=== PATIENT | female | born 1975 | race Caucasian/White ===

== ENCOUNTER 2016-05-05 09:54 | Emergency (ER) | payer BC ==
[2016-05-05 10:12] VITALS: BP 132/63
--- NOTE | 2016-05-05 10:45 | UC ---
Throat Pain/Nasal Johnny HPI - HPI Summary HPI Summary: Fever, aches, chills, maxillary sinus pressure, and nasal congestion starting 3 days ago. 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 - History of Current Complaint Chief Complaint: UCRespiratory Stated Complaint: FEVER,SINUSES Time Seen by Provider: 05/05/16 10:29 Hx Obtained From: Patient Hx Last Menstrual Period: 04/23/16 ?: No Onset/Duration: Gradual Onset, Lasting Days Cough: Nonproductive - mild Associated Signs & Symptoms: Positive: Sinus Discomfort, Nasal Discharge, Fever - Allergies/Home Medications Allergies/Adverse Reactions: Allergies Allergy/AdvReac Type Severity Reaction Status Date / Time Iodinated Contrast Media Allergy Severe Shortness Verified 05/05/16 10:12 [CONTRAST DYE] of Breath Metformin Allergy Hives Verified 05/05/16 10:12 Penicillin G Allergy Hives Verified 05/05/16 10:12 Venlafaxine [From Effexor] Allergy Hives Verified 05/05/16 10:12 Erythromycin AdvReac Severe severe Verified 05/05/16 10:12 abdominal pain novacaine Allergy Mild Blisters Uncoded 05/05/16 10:12 Home Medications: Home Medications LORazepam TAB(*) [Ativan TAB(*)] 0.5 mg PO QID PRN 05/05/16 [History Confirmed 05/05/16] Minocycline (NF) 100 mg PO DAILY 05/05/16 [History Confirmed 05/05/16] PMH/Surg Hx/FS Hx/Imm Hx Endocrine History Of: Denies: Diabetes, Thyroid Disease, Hyperthyroidism, Hypothyroidism, Dyslipidemia Cardiovascular History Of: Denies: Cardiac Disorders, Hypertension, Pacemaker/ICD, Myocardial Infarction , Congestive Heart Failure, Atrial Fibrillation, Deep Vein Thrombosis, Bleeding Disorders Respiratory History Of: Denies: COPD, Asthma, Bronchitis, Pneumonia, Pulmonary Embolism GI/ History Of: Denies: Gastroesophageal Reflux, Ulcer, Gastrointestinal Bleed, Gall Bladder Disease, Kidney Stones, Diverticulitis, Renal Disease, Urosepsis Neurological History Of: Denies: TIA, CVA, Dementia, Seizures, Migraine Psychological History Of: Reports: Anxiety, Depression Cancer History Of: Denies: Lung Cancer, Colorectal Cancer, Breast Cancer, Prostate Cancer, Cervical Cancer Other History Of: Negative For: HIV, Hepatitis B, Hepatitis C - Surgical History Surgical History: Yes Surgery Procedure, Year, and Place: Tonsillectomy, sinus surgery 04/2015, rt wrist surgery 09/12/05, D&C 01/2013. - Family History Known Family History: Positive: Hypertension - Social History Occupation: Employed Full-time Alcohol Use: Rare Substance Use Type: None Smoking Status (MU): Never Smoked Tobacco Review of Systems Constitutional: Fever, Chills, Fatigue Skin: Negative Eyes: Negative ENT: Nasal Discharge Respiratory: Cough Cardiovascular: Negative Gastrointestinal: Negative Genitourinary: Negative Motor: Negative Neurovascular: Negative Musculoskeletal: Myalgia Neurological: Negative Psychological: Negative All Other Systems Reviewed And Are Negative: Yes Physical Exam Triage Information Reviewed: Yes Appearance: Well-Appearing, No Pain Distress, Obese Vital Signs: Initial Vital Signs Temp 96.5 F 05/05/16 10:09 Pulse 79 05/05/16 10:09 Resp 16 05/05/16 10:09 BP 132/63 05/05/16 10:09 Pulse Ox 97 05/05/16 10:09 Vital Signs Reviewed: Yes Eye Exam: Normal Eyes: Positive: Conjunctiva Clear ENT: Positive: Hearing grossly normal, Pharynx normal, Nasal congestion, TMs normal. Negative: Tonsillar swelling - s/p tonsillectomy Dental Exam: Normal Neck exam: Normal Neck: Positive: Supple, Nontender, No Lymphadenopathy Respiratory Exam: Normal Respiratory: Positive: Chest non-tender, Lungs clear, Normal breath sounds, No respiratory distress, No accessory muscle use Cardiovascular Exam: Normal Cardiovascular: Positive: RRR, No Murmur Musculoskeletal Exam: Normal Neurological Exam: Normal Psychological Exam: Normal Skin Exam: Normal Throat Pain/Nasal Course/Dx - Differential Dx/Diagnosis Provider Diagnoses: sinusitis, likely viral. URI Discharge - Discharge Plan Condition: Stable Disposition: HOME Patient Education Materials: Upper Respiratory Infection (ED), Sinusitis (ED) Referrals: Reji Jorgensen MD [Primary Care Provider] - Additional Instructions: All of your symptoms are viral at this point. Because your flu swab was negative , there is no particular treatment for you. Please call and get me a message if you have focal symptoms or worsening by sunday. I will be at [facility] on Sunday and Sunday.
== END 2016-05-05 11:17 | disposition home or self-care (01) ==
LOC: UCCORT 09:54
DX: J32.9 Chronic sinusitis, unspecified (principal); J06.9 Acute upper respiratory infection, unspecified; F41.9 Anxiety disorder, unspecified; E66.9 Obesity, unspecified; Z88.0 Allergy status to penicillin; Z88.1 Allergy status to other antibiotic agents; Z88.8 Allergy status to other drugs, medicaments and biological substances; Z91.041 Radiographic dye allergy status
CPT/HCPCS: 87502; 99211; G0463

== ENCOUNTER 2016-06-05 18:05 | Emergency (ER) | payer BC ==
[2016-06-05 18:50] VITALS: BP 148/84
--- NOTE | 2016-06-05 20:30 | UC ---
Complaint Female HPI - HPI Summary HPI Summary: 40 y/o female complaining of urinary frequency, burning on urination, hesitancy , and feeling as though she is not fully emptying her bladder x 4 days. Patient states she began taking an ABX facial cream a week ago, and also developed vaginal itchiness, dryness, and increased thick white discharge. Patient denies any new sexual partners or activities. - History Of Current Complaint Chief Complaint: UCGU Stated Complaint: URINARY Time Seen by Provider: 06/05/16 20:17 Hx Obtained From: Patient Hx Last Menstrual Period: 05/13/16 ?: No Onset/Duration: Gradual Onset Aggravating Factor(s): Urination Associated Signs And Symptoms: Positive: Vaginal Discharge. Negative: Back Pain - Risk Factors Ectopic Risk Factor: Negative Ovarian Torsion Risk Factor: Negative - Allergies/Home Medications Allergies/Adverse Reactions: Allergies Allergy/AdvReac Type Severity Reaction Status Date / Time Iodinated Contrast Media Allergy Severe Shortness Verified 05/05/16 10:12 [CONTRAST DYE] of Breath Metformin Allergy Hives Verified 05/05/16 10:12 Penicillin G Allergy Hives Verified 05/05/16 10:12 Venlafaxine [From Effexor] Allergy Hives Verified 05/05/16 10:12 Erythromycin AdvReac Severe severe Verified 05/05/16 10:12 abdominal pain novacaine Allergy Mild Blisters Uncoded 05/05/16 10:12 PMH/Surg Hx/FS Hx/Imm Hx - Additional Past Medical History Additional PMH: basal cell carcinoma Previously Healthy: Yes Endocrine History Of: Denies: Diabetes, Thyroid Disease, Hyperthyroidism, Hypothyroidism, Dyslipidemia Cardiovascular History Of: Denies: Cardiac Disorders, Hypertension, Pacemaker/ICD, Myocardial Infarction , Congestive Heart Failure, Atrial Fibrillation, Deep Vein Thrombosis, Bleeding Disorders Respiratory History Of: Denies: COPD, Asthma, Bronchitis, Pneumonia, Pulmonary Embolism GI/ History Of: Denies: Gastroesophageal Reflux, Ulcer, Gastrointestinal Bleed, Gall Bladder Disease, Kidney Stones, Diverticulitis, Renal Disease, Urosepsis Neurological History Of: Denies: TIA, CVA, Dementia, Seizures, Migraine Psychological History Of: Reports: Anxiety, Depression Cancer History Of: Denies: Lung Cancer, Colorectal Cancer, Breast Cancer, Prostate Cancer, Cervical Cancer Other History Of: Negative For: HIV, Hepatitis B, Hepatitis C - Surgical History Surgical History: Yes Surgery Procedure, Year, and Place: Tonsillectomy, sinus surgery 04/2015, rt wrist surgery 09/12/05, D&C 01/2013. - Family History Known Family History: Positive: Hypertension - Social History Occupation: Employed Full-time Lives: Alone Alcohol Use: Rare Substance Use Type: None Smoking Status (MU): Never Smoked Tobacco Have You Smoked in the Last Year: No Review of Systems Constitutional: Negative Skin: Negative Eyes: Negative ENT: Negative Respiratory: Negative Cardiovascular: Negative Gastrointestinal: Negative Genitourinary: Dysuria, Hematuria, Frequency, Urgency, Other - Vaginal itchiness , dryness, thick white discharge Motor: Negative Neurovascular: Negative Musculoskeletal: Negative Neurological: Negative Psychological: Negative All Other Systems Reviewed And Are Negative: Yes Physical Exam Triage Information Reviewed: Yes Completion Of Physical Exam Limited Due To: Altered Mental Status Appearance: Well-Appearing, No Pain Distress, Well-Nourished Vital Signs: Initial Vital Signs Temp 97.7 F 06/05/16 18:44 Pulse 82 06/05/16 18:44 Resp 16 06/05/16 18:44 BP 148/84 06/05/16 18:44 Pulse Ox 99 06/05/16 18:44 Vital Signs Reviewed: Yes Eye Exam: Normal Eyes: Positive: Conjunctiva Clear ENT: Positive: Normal ENT inspection, Hearing grossly normal, Pharynx normal, TMs normal Dental Exam: Normal Neck exam: Normal Neck: Positive: Supple, Nontender, No Lymphadenopathy Respiratory: Positive: Chest non-tender, Lungs clear, Normal breath sounds Cardiovascular Exam: Normal Cardiovascular: Positive: RRR, No Murmur, Pulses Normal Abdominal Exam: Normal Abdomen Description: Positive: Nontender, No Organomegaly, Soft Bowel Sounds: Positive: Present Musculoskeletal Exam: Normal Musculoskeletal: Positive: Strength Intact, ROM Intact, No Edema Neurological Exam: Normal Neurological: Positive: Alert, Muscle Tone Normal Psychological Exam: Normal Skin Exam: Normal - Additional Comments Discussed performing a pelvic exam, declined by the patient. Complaint Female Dx - Differential Dx/Diagnosis Provider Diagnoses: Urinary Tract Infection. Vulvocandidas Discharge - Discharge Plan Condition: Stable Disposition: HOME Prescriptions: Fluconazole 150 MG (NF) [Diflucan 150 mg (NF)] 150 mg PO ONCE #1 tab Nitrofurantoin Monohyd Macro [Macrobid] 100 mg PO BID #10 cap Patient Education Materials: Urinary Tract Infection in Women (ED) Referrals: Reji Jorgensen MD [Primary Care Provider] - If Needed Additional Instructions: Take all of the antibiotic as prescribed. Follow up if symptoms fail to improve after treatment.
[2016-06-05] MEDS ORDERED: Nitrofurantoin Macrocrystals* 50 MG CAP PO ONE (20:38)
== END 2016-06-05 20:45 | disposition home or self-care (01) ==
LOC: UCCORT 18:05
DX: N39.0 Urinary tract infection, site not specified (principal); R31.9 Hematuria, unspecified; B37.3 Candidiasis of vulva and vagina; Z88.4 Allergy status to anesthetic agent; Z88.1 Allergy status to other antibiotic agents; Z88.0 Allergy status to penicillin; Z88.8 Allergy status to other drugs, medicaments and biological substances; Z91.041 Radiographic dye allergy status
CPT/HCPCS: 87077; 87086; 99212; A9270-GY; G0463

== ENCOUNTER 2016-06-06 16:47 | Emergency (ER) | payer BC ==
[2016-06-06 17:01] VITALS: BP 131/71
--- NOTE | 2016-06-06 17:20 | UC ---
UC General HPI - HPI Summary HPI Summary: The patient comes in today for: 1. Fever, lightheadedness, headache, body aches: Onset: Started this morning. Palliative/provocative: Nothing makes her symptoms better or worse. Quality: Ache Region: Frontal Severity: "9 and a half." But, she looks more like 5-6/10 Time: Constant. Associated symptoms: Fever: She last took her temperature at home 3:30 PM and it was 101.3 Vomiting: None. Diarrhea: Present, 4-5 stools today with no blood, mucous or pus in the stool. Lightheadedness: She describes a spinning sensation. Cough: None. Rhinitis: None. Sore throat: None. Flu vaccine: She got it. LMP: 4 weeks ago. Urine output. "Not a whole lot" * - History of Current Complaint Chief Complaint: UCGeneralIllness Stated Complaint: URINARY RECHECK Time Seen by Provider: 06/06/16 17:10 Hx Obtained From: Patient Onset/Duration: Lasting Weeks - Allergy/Home Medications Allergies/Adverse Reactions: Allergies Allergy/AdvReac Type Severity Reaction Status Date / Time Iodinated Contrast Media Allergy Severe Shortness Verified 06/06/16 17:01 [CONTRAST DYE] of Breath Metformin Allergy Hives Verified 06/06/16 17:01 Penicillin G Allergy Hives Verified 06/06/16 17:01 Venlafaxine [From Effexor] Allergy Hives Verified 06/06/16 17:01 Erythromycin AdvReac Severe severe Verified 06/06/16 17:01 abdominal pain novacaine Allergy Mild Blisters Uncoded 06/06/16 17:01 PMH/Surg Hx/FS Hx/Imm Hx Previously Healthy: No - Basal cell carcinoma, Acne, family planning. Endocrine History Of: Denies: Diabetes, Thyroid Disease, Hyperthyroidism, Hypothyroidism, Dyslipidemia Cardiovascular History Of: Denies: Cardiac Disorders, Hypertension, Pacemaker/ICD, Myocardial Infarction , Congestive Heart Failure, Atrial Fibrillation, Deep Vein Thrombosis, Bleeding Disorders Respiratory History Of: Denies: COPD, Asthma, Bronchitis, Pneumonia, Pulmonary Embolism GI/ History Of: Denies: Gastroesophageal Reflux, Ulcer, Gastrointestinal Bleed, Gall Bladder Disease, Kidney Stones, Diverticulitis, Renal Disease, Urosepsis Neurological History Of: Denies: TIA, CVA, Dementia, Seizures, Migraine Psychological History Of: Reports: Anxiety, Depression Denies: Bipolar Disorder, Schizophrenia, Post Traumatic Stress Disorder Cancer History Of: Denies: Lung Cancer, Colorectal Cancer, Breast Cancer, Prostate Cancer, Cervical Cancer Other History Of: Negative For: HIV, Hepatitis B, Hepatitis C, Anticoagulant Therapy - Surgical History Surgical History: Yes Surgery Procedure, Year, and Place: Tonsillectomy, sinus surgery 04/2015, rt wrist surgery 09/12/05, D&C 01/2013. - Family History Known Family History: Positive: Hypertension, Diabetes - Social History Occupation: Employed Full-time Alcohol Use: Rare Substance Use Type: None Smoking Status (MU): Never Smoked Tobacco Have You Smoked in the Last Year: No Review of Systems Constitutional: Fever Skin: Negative Eyes: Negative ENT: Negative Respiratory: Negative Cardiovascular: Negative Gastrointestinal: Diarrhea Genitourinary: Negative Musculoskeletal: Arthralgia, Myalgia Neurological: Headache All Other Systems Reviewed And Are Negative: Yes Physical Exam Triage Information Reviewed: Yes Appearance: No Pain Distress, Obese, Other: - She has a very flat affect. She is laying on the cot, not moving when I came into the room. However, she was able to sit up on her own accord for the exam. Vital Signs: Initial Vital Signs Temp 98.5 F 06/06/16 16:55 Pulse 114 06/06/16 16:55 Resp 18 06/06/16 16:55 BP 131/71 06/06/16 16:55 Pulse Ox 98 06/06/16 16:55 Vital Signs Reviewed: Yes Eyes: Positive: Conjunctiva Clear. Negative: Discharge ENT: Negative: Pharyngeal erythema, Nasal congestion, Nasal drainage, TM bulging , TM dull, TM red, Tonsillar swelling, Tonsillar exudate Dental: Negative: Gross Decay/Caries @, Dental Fracture @ Neck: Positive: Supple, Nontender, No Lymphadenopathy. Negative: Nuchal Rigidity Respiratory: Positive: Chest non-tender, Lungs clear, No respiratory distress, No accessory muscle use. Negative: Crackles, Stridor Cardiovascular: Positive: No Murmur Abdomen Description: Positive: No Organomegaly, Soft. Negative: Nontender - She has tenderness to the lower right quadrant. There is rebound and percussion tenderness. No guarding, but she has increased adipose tissue. She has positive psoas sign., Guarding Musculoskeletal: Positive: Strength Intact, ROM Intact, No Edema Neurological: Positive: Alert, Muscle Tone Normal Psychological: Positive: Age Appropriate Behavior, Consolable Skin: Negative: rashes, breakdown Course/Dx - Course Course Of Treatment: Patient was told that I was concerned about her lower right quadrant pain in light of her having her appendix. She was told that I think she should be seen in the ER for further evaluation. She agreed to go but by private car. - Differential Dx - Multi-Symptom Provider Diagnoses: Abdominal pain (right lower quadrant), rule out appendicitis. - Physician Notifications Discussed Patient Care With: Gail Casas Time Discussed With Above Provider: 17:37 Discharge - Discharge Plan Condition: Stable Disposition: HOME Forms: *Work Release Referrals: Reji Jorgensen MD [Primary Care Provider] - Additional Instructions: Patient was told to go directly to the [facility] via private car since she refused an abulance.
== END 2016-06-06 17:34 | disposition left against medical advice (07) ==
LOC: UCCORT 16:47
DX: R10.31 Right lower quadrant pain (principal); R50.9 Fever, unspecified; E66.9 Obesity, unspecified; Z88.4 Allergy status to anesthetic agent; Z88.0 Allergy status to penicillin; Z88.8 Allergy status to other drugs, medicaments and biological substances; Z88.1 Allergy status to other antibiotic agents; Z91.041 Radiographic dye allergy status
CPT/HCPCS: 99212; G0463

== ENCOUNTER 2017-05-07 17:24 | Emergency (ER) | payer BC ==
[2017-05-07 20:13] VITALS: BP 132/83
--- NOTE | 2017-05-07 20:29 | UC ---
FLU HPI - HPI Summary HPI Summary: Pt c/o sudden onset of fever, chills, body aches, cough X 2 days. - History of Current Complaint Chief Complaint: UCGeneralIllness Stated Complaint: FEVER,CONGESTION Time Seen by Provider: 05/07/17 20:14 Hx Obtained From: Patient Hx Last Menstrual Period: 04/05/17 ?: No Onset/Duration: Sudden Onset Severity Currently: Moderate Severity Initially: Moderate Pain Intensity: 8 Associated Signs & Symptoms: Positive: Fever, Myalgia, Cough, Headache Related Hx: Possible Flu/Infectious Exposure - Allergy/Home Medications Allergies/Adverse Reactions: Allergies Allergy/AdvReac Type Severity Reaction Status Date / Time Iodinated Contrast Media Allergy Severe Shortness Verified 05/07/17 20:10 [CONTRAST DYE] of Breath Metformin Allergy Hives Verified 05/07/17 20:10 Penicillin G Allergy Hives Verified 05/07/17 20:10 Venlafaxine [From Effexor] Allergy Hives Verified 05/07/17 20:10 Erythromycin AdvReac Severe severe Verified 05/07/17 20:10 abdominal pain novacaine Allergy Mild Blisters Uncoded 05/07/17 20:10 PMH/Surg Hx/FS Hx/Imm Hx Previously Healthy: Yes Other History Of: Negative For: HIV, Hepatitis B, Hepatitis C, Anticoagulant Therapy - Surgical History Surgical History: Yes Surgery Procedure, Year, and Place: Tonsillectomy, sinus surgery 04/2015, rt wrist surgery 09/12/05, D&C 01/2013. - Family History Known Family History: Positive: Hypertension, Diabetes - Social History Occupation: Employed Full-time Lives: With Family Alcohol Use: None Substance Use Type: None Smoking Status (MU): Never Smoked Tobacco Have You Smoked in the Last Year: No - Immunization History Most Recent Influenza Vaccination: 2016 Review of Systems Constitutional: Fever, Chills, Fatigue Skin: Negative Eyes: Negative ENT: Negative Respiratory: Cough Cardiovascular: Negative Gastrointestinal: Negative Genitourinary: Negative Motor: Negative Neurovascular: Negative Musculoskeletal: Myalgia Neurological: Headache Psychological: Negative Is Patient Immunocompromised?: No All Other Systems Reviewed And Are Negative: Yes Physical Exam Triage Information Reviewed: Yes Appearance: Ill-Appearing Vital Signs: Initial Vital Signs Temp 99.3 F 05/07/17 20:08 Pulse 98 05/07/17 20:08 Resp 18 05/07/17 20:08 BP 132/83 05/07/17 20:08 Pulse Ox 98 05/07/17 20:08 Vital Signs Reviewed: Yes Eye Exam: Normal ENT Exam: Normal Neck exam: Normal Respiratory Exam: Other Respiratory: Positive: Wheezing Cardiovascular Exam: Normal Musculoskeletal Exam: Normal Neurological Exam: Normal Psychological Exam: Normal Skin Exam: Normal Flu Course/Dx - Differential Dx/Diagnosis Differential Diagnosis/HQI/PQRI: Bronchitis, Influenza, Pneumonia, Upper Respiratory Infection Provider Diagnoses: bronchitis. viral syndrome Discharge - Discharge Plan Condition: Stable Disposition: HOME Prescriptions: Benzonatate CAP* [Tessalon 100 MG CAP*] 100 mg PO Q8H PRN #30 cap PRN Reason: Cough DOXYcycline CAP(*) [DOXYcycline 100MG CAP(*)] 100 mg PO Q12H #20 cap Oseltamivir CAP* [Tamiflu CAP*] 75 mg PO Q12H #10 cap Patient Education Materials: Acute Bronchitis (ED), Viral Syndrome (ED) Forms: *Work Release Referrals: Reji Jorgensen MD [Primary Care Provider] - If Needed
== END 2017-05-07 20:38 | disposition home or self-care (01) ==
LOC: UCCORT 17:24
DX: J40 Bronchitis, not specified as acute or chronic (principal); B34.9 Viral infection, unspecified; Z88.0 Allergy status to penicillin; Z88.8 Allergy status to other drugs, medicaments and biological substances; Z88.4 Allergy status to anesthetic agent; Z88.1 Allergy status to other antibiotic agents; Z91.041 Radiographic dye allergy status
CPT/HCPCS: 99212; G0463

== ENCOUNTER 2017-05-10 08:21 | Emergency (ER) | payer BC ==
[2017-05-10] MEDS ORDERED: NS 0.9% 1000 ML* 1,000 ML IV ONE (08:49)
--- NOTE | 2017-05-10 09:14 | RAD ---
INDICATION: Cough COMPARISON: September 19, 2004 TECHNIQUE: PA and lateral dual-energy views were obtained. FINDINGS: Bones/Soft Tissues: There are no acute bony findings. Cardiomediastinal: The cardiomediastinal silhouette is normal. Lungs: There are no infiltrates. Pleura: There are no pleural effusions. Other: None IMPRESSION: NO ACTIVE DISEASE.
[2017-05-10 09:43] VITALS: BP 0/0
--- NOTE | 2017-05-11 18:45 | UC ---
Gladis Mary Nilda, scribed for Wally Alicea MD on 05/10/17 at 0852 . Respiratory Complaint HPI - HPI Summary HPI Summary: This patient is a 41 year old F presenting to [facility] [place] with a chief complaint of constant productive cough for the past few days that has been progressively worsening. The patient rates the sharp pain 8/10 in severity. Symptoms aggravated and alleviated by nothing. Patient reports sharp CP with coughing, sore throat, and diaphoresis. Patient denies abnormal drinking and eating, SOB, abd pain, and diarrhea. On 05/07/17 pt visited [facility] [place] and was Dx and treated for flu and bronchitis. Pt states this is her 4th day of Tamiflu with no relief. - History of Current Complaint Chief Complaint: UCGeneralIllness Stated Complaint: COUGH,HEADACHE Time Seen by Provider: 05/10/17 08:33 Hx Obtained From: Patient Hx Last Menstrual Period: 04/14/17 Onset/Duration: Sudden Onset, Lasting Days, Still Present Severity Currently: Severe Pain Intensity: 8 Pain Scale Used: 0-10 Numeric Character: Cough: Productive Aggravating Factors: Nothing Alleviating Factors: Nothing Associated Signs And Symptoms: Positive: URI. Negative: Dyspnea - Allergies/Home Medications Allergies/Adverse Reactions: Allergies Allergy/AdvReac Type Severity Reaction Status Date / Time MS Iodinated Contrast Media Allergy Severe Shortness Verified 05/10/17 08:38 [CONTRAST DYE] of Breath latex Allergy Rash Verified 05/10/17 08:38 MS Metformin [Metformin] Allergy Hives Verified 05/10/17 08:38 MS Penicillin G Allergy Hives Verified 05/10/17 08:38 [Penicillin G] MS Venlafaxine [From Effexor] Allergy Hives Verified 05/10/17 08:38 Penicillins Allergy Hives Verified 05/10/17 08:38 MS Erythromycin AdvReac Severe severe Verified 05/10/17 08:38 [Erythromycin] abdominal pain novacaine Allergy Mild Blisters Uncoded 05/10/17 08:38 Home Medications: Home Medications Dextromethorphan-Guaifenesin [Mucinex Dm Maximum Streng 60-1200 mg] 1 tab PO Q12HR PRN 05/10/17 [History Confirmed 05/10/17] PMH/Surg Hx/FS Hx/Imm Hx Respiratory History: Bronchitis Other History Of: Negative For: HIV, Hepatitis B, Hepatitis C, Anticoagulant Therapy - Surgical History Surgical History: Yes Surgery Procedure, Year, and Place: Tonsillectomy, sinus surgery 04/2015, rt wrist surgery 09/12/05, D&C 01/2013. - Family History Known Family History: Positive: Hypertension, Diabetes - Social History Alcohol Use: None Substance Use Type: None Smoking Status (MU): Never Smoked Tobacco Have You Smoked in the Last Year: No Household Exposure Type: Cigarettes - Immunization History Most Recent Influenza Vaccination: 2017 Review of Systems Skin: Other - diaphoresis ENT: Sore Throat Respiratory: Cough, Other - negative SOB Cardiovascular: Chest Pain - w coughing Gastrointestinal: Other - negative abnormal drinking and eating, abd pain, diarrhea All Other Systems Reviewed And Are Negative: Yes Physical Exam Triage Information Reviewed: Yes Vital Signs: Initial Vital Signs Temp 97.1 F 05/10/17 08:26 Pulse 116 05/10/17 08:26 Resp 20 05/10/17 08:26 BP 143/96 05/10/17 08:26 Pulse Ox 98 05/10/17 08:26 Vital Signs Reviewed: Yes - Additional Comments VITAL SIGNS: Reviewed. GENERAL: Patient is a well developed and nourished F who is lying comfortable in the stretcher. Patient is not in any acute respiratory distress. HEAD AND FACE: Normocephalic EYES: PERRLA, EOMI x 2. EARS: Hearing grossly intact. MOUTH: Oropharynx within normal limits. NECK: Supple, trachea is midline, no adenopathy, no JVD, no carotid bruit. CHEST: Symmetric, no tenderness at palpation LUNGS: Clear to auscultation bilaterally. No wheezing or crackles. CVS: tachycardic, S1 and S2 present, no murmurs or gallops appreciated. ABDOMEN: Soft, non-tender. Bowel sounds are normal. No abdominal abnormal pulsations. EXTREMITIES: Full ROM in all major joints, no edema, no cyanosis or clubbing. NEURO: Alert and oriented x 3. No acute neurological deficits. Speech is normal and follows commands. SKIN: Warm, Diaphoretic UC Diagnostic Evaluation - Laboratory O2 Sat by Pulse Oximetry: 98 - Radiology Radiology Interpretation Completed By: Radiologist - CXR, per radiologist, reveals NAD. Dr. Alicea has reviewed this radiology report. - EKG Cardiac Rate: Tachycardia - 112 bpm Cardiac Rhythm: Sinus: New - Sinus Tachy, no ST elevation Re-Evaluation - Re-Evaluation First Eval Re-Evaluation Time: 09:40 Comment: Pt feeling better. Second Eval Re-Evaluation Time: 10:08 Comment: Discussed discharge plan and lab results, EKG, and CXR. Respiratory Course/Dx - Course Course Of Treatment: Patient initially tachycardic and diaphoretic. EKG was done showed a sinus tachycardia w/o STEMI. I believe symptoms are secondary to the FLue. She was diagnosed with the flu a couple days ago and she is taking Tamiflu. In the UC she was hydrated and her tachycardia resolved. She is feeling better. CXR is negative for pneumonia and rapid strep is negative. Since patient is feeling better I will discharged patient home with f/u of PCP. I discussed all the findings and test results with the patient and Patient was instructed to return to the UC or go to the ED if develops any fever, increase sore throat unable to swallow, drooling, unable to open their mouth, or any other symptoms. The patient understands and agrees. Plan of care was discussed with the patient and understands and agrees. All questions were answered at patient satisfaction. There were no further complaints or concerns. Patient is A + O X 3. hemodynamically stable. - Differential Dx/Diagnosis Differential Diagnosis/HQI/PQRI: Bronchitis, Laryngitis, Lower Resp Infection, Sinusitis Provider Diagnoses: Influenza. URI. Dehydration Discharge - Discharge Plan Condition: Stable Disposition: HOME Patient Education Materials: Dehydration (ED), Influenza (DC), Upper Respiratory Infection (DC) Forms: *Work Release Referrals: Reji Jorgensen MD [Primary Care Provider] - Additional Instructions: Continue taking plenty of fluids. Continue taking medications as indicated F/U with PCP. The documentation as recorded by the Gladis dickens Nilda accurately reflects the service I personally performed and the decisions made by me, Wally Alicea MD.
== END 2017-05-10 10:30 | disposition home or self-care (01) ==
LOC: UCEAST 08:21
DX: J11.1 Influenza due to unidentified influenza virus with other respiratory manifestations (principal); E86.0 Dehydration; R00.0 Tachycardia, unspecified; Z88.0 Allergy status to penicillin; Z88.8 Allergy status to other drugs, medicaments and biological substances; Z88.4 Allergy status to anesthetic agent; Z88.1 Allergy status to other antibiotic agents; Z91.041 Radiographic dye allergy status; Z91.040 Latex allergy status; Z77.22 Contact with and (suspected) exposure to environmental tobacco smoke (acute) (chronic)
CPT/HCPCS: 71046; 87651; 93005; 96360; 99211; G0463

== ENCOUNTER 2017-06-11 07:44 | Emergency (ER) | payer BC ==
[2017-06-11 08:01] VITALS: BP 137/92
--- NOTE | 2017-06-11 10:14 | UC ---
Atif Mary Jennifer, scribed for Shari Dash DO on 06/11/17 at 0907 . General HPI - HPI Summary HPI Summary: The patient is a 41 year old female who presents to with a fever that began three days ago. She complains of a sore throat, non-productive coughing spasms, sinus congestion, shortness of breath, insomnia, plugged ears, and a headache that makes her feel like her head is going to explode, She is able to swallow her own spit but the sore throat has been interfering with eating and drinking. The patient denies nausea, vomiting, chest pain, and myalgia. She reports she took Nyquil last night to help her sleep, but it didnt help. She also reports having the flu one month ago. - History of Current Complaint Chief Complaint: UCGeneralIllness Stated Complaint: COUGH,CONGESTED Time Seen by Provider: 06/11/17 08:51 Hx Obtained From: Patient Hx Last Menstrual Period: 05/16/17 Onset/Duration: Sudden Onset, Lasting Days - 3 days, Still Present, Worse Since Timing: Constant Onset Severity: Mild Current Severity: None Pain Intensity: 0 Associated Signs & Symptoms: Positive: Other - fever, sore throat, non- productive cough, sinus congestion, shortness of breath, insomnia, "plugged" ears, headache. NEGATIVE: nausea, vomiting, chest pain, myalgia - Allergy/Home Medications Allergies/Adverse Reactions: Allergies Allergy/AdvReac Type Severity Reaction Status Date / Time erythromycin base Allergy Severe Abdominal Verified 06/11/17 08:05 [From Erythrocin] Pain metformin Allergy Intermediate Hives Verified 06/11/17 08:05 venlafaxine [From Effexor] Allergy Intermediate Hives Verified 06/11/17 08:05 latex Allergy Rash Verified 06/11/17 08:03 Penicillins Allergy Hives Verified 06/11/17 08:03 contrast dye Allergy Severe Shortness Uncoded 06/11/17 08:05 of Breath novacaine Allergy Mild Blisters Uncoded 06/11/17 08:03 PMH/Surg Hx/FS Hx/Imm Hx Previously Healthy: Yes Other GI/ History: PCOS Other History Of: Negative For: HIV, Hepatitis B, Hepatitis C, Anticoagulant Therapy - Surgical History Surgical History: Yes Surgery Procedure, Year, and Place: Tonsillectomy, sinus surgery 04/2015,. rt wrist surgery 09/12/05,. D&C 01/2013. - Family History Known Family History: Positive: Hypertension, Diabetes, Other - [place] - Social History Alcohol Use: None Substance Use Type: None Smoking Status (MU): Never Smoked Tobacco Have You Smoked in the Last Year: No Household Exposure Type: Cigarettes - Immunization History Most Recent Influenza Vaccination: 2016 Review of Systems Constitutional: Fever ENT: Sore Throat, Sinus Congestion, Other - Plugged ears Respiratory: Shortness Of Breath Cardiovascular: Negative - chest pain Gastrointestinal: Negative - Nausea, vomiting Musculoskeletal: Negative - Myalgia Neurological: Headache, Other - Insomnia All Other Systems Reviewed And Are Negative: Yes Physical Exam - Summary Physical Exam Summary: Appearance: Well-Appearing, No Pain Distress, Well-Nourished Eyes: conjunctiva clear, no discharge ENT: Hearing grossly normal, no muffled/hoarse voice. No tonsils or uvula. Tender sinuses, nasal congestion, sinus drainage. Neck: Normal, Supple Respiratory/Lung Sounds: Prolonged expiration at the bases bilaterally. Lungs clear, Normal breath sounds, No respiratory distress, No accessory muscle use Cardiovascular: RRR, No murmur Abdomen: Nontender, Soft, no guarding, not distended Bowel Sounds: Present Musculoskeletal: Normal Neurological: Alert, muscle tone normal Psychiatric:Normal, age appropriate behavior Skin: Normal, Warm, Dry, Normal Triage Information Reviewed: Yes Vital Signs: Initial Vital Signs Temp 98.2 F 06/11/17 07:55 Pulse 98 06/11/17 07:55 Resp 16 06/11/17 07:55 BP 137/92 06/11/17 07:55 Pulse Ox 96 06/11/17 07:55 Vital Signs Reviewed: Yes Course/Dx - Course Course Of Treatment: Strep test was negative. Patient will be discharged with prescription for Albuterol, Mucinex, Robitussin, and Magic Mouth Was and follow up from PCP. The patient is agreeable with this plan. Medications reviewed. Allergies reviewed. High blood pressure noted. - Differential Dx - Multi-Symptom Provider Diagnoses: Viral Sinusitis Discharge - Discharge Plan Condition: Stable Disposition: HOME Prescriptions: Albuterol HFA INHALER* [Ventolin HFA Inhaler*] 2 puff INH Q4H PRN #1 mdi PRN Reason: Sob/Wheezing guaiFENesin ER TAB [Mucinex*] 600 mg PO BID PRN #1 box PRN Reason: Cough guaiFENesin/CODIEN 100MG-10MG* [Robitussin AC 100Mg-10Mg*] 5 - 10 ml PO Q4H PRN #100 udc MDD 10ml PRN Reason: Cough Magic Mouth Was-PADMA/MAAL/LIDO* 5 ml SWISH SPIT QID PRN #100 ml PRN Reason: Pain Patient Education Materials: Sinusitis (ED), Bronchospasm (ED) Forms: *Work Release Referrals: Reji Jorgensen MD [Primary Care Provider] - 4 Days () Additional Instructions: TRY USING THE NETTI POT IN THE MORNINGS DISCUSSED. YOU MUST ALWAYS USE CLEAN WATER. REMEMBER, POSTURE IS AN IMPORTANT FACTOR IN SINUS DRAINAGE. MOVE YOUR NECK, BREATHE. INHALED BRONCHODILATORS: You have received a prescription for an inhaled bronchodilator -- a medication which stimulates the airways in the lung to dilate. This improves the flow of air in asthma, bronchitis, and emphysema. These medicines have some similarity to adrenaline, and can cause similar side effects: shakiness, racing heart, and a sense of nervousness. These side effects decrease with time. Contact your doctor if these side effects are severe. Do not over-use the medicine. Too-frequent use of the inhaler may make it ineffective. Call your doctor if the inhaler is not controlling your symptoms at the prescribed doses. COUGH-SUPPRESSANT & EXPECTORANT MEDICATION: You are to use a cough medication as needed for relief of symptoms. This medicine is a combination of an expectorant (to make the mucous thinner and more easily "coughed up") and a cough suppressant (to reduce the frequency of coughing). The cough-suppressant medicine is related to narcotics. You may experience mild nausea and sleepiness. Some patients who are very sensitive to narcotics may have stomach pain from this medicine. Taking the medicine with food reduces these side effects. Do not drive or work with machinery until you know how this medicine affects you. The expectorant should have no side effects. Iodine-containing expectorants (such as organidin) should not be taken by persons with active thyroid disease unless approved by your doctor. Call the doctor if you develop shortness of breath, hives, rash, itching, lightheadedness, or severe nausea and vomiting. EXPECTORANT MEDICATION: An expectorant medicine has been prescribed. This type of drug makes mucous thinner, helping the sinuses, nose, and bronchial tubes to remain free of pus and mucous. Expectorants make a cough less severe and more comfortable, and help infected sinuses drain. In general, antihistamines defeat the purpose of the expectorant by making mucous thicker. They should be avoided unless specifically recommended by your physician. The documentation as recorded by the Atif dickens Jennifer accurately reflects the service I personally performed and the decisions made by , Shari Dash DO.
== END 2017-06-11 09:53 | disposition home or self-care (01) ==
LOC: UCEAST 07:44
DX: J01.90 Acute sinusitis, unspecified (principal); R50.9 Fever, unspecified; H93.8X3 Other specified disorders of ear, bilateral; E28.2 Polycystic ovarian syndrome; Z88.0 Allergy status to penicillin; Z88.4 Allergy status to anesthetic agent; Z88.1 Allergy status to other antibiotic agents; Z91.041 Radiographic dye allergy status; Z91.040 Latex allergy status
CPT/HCPCS: 87651; 99212; G0463

== ENCOUNTER 2017-12-13 13:32 | Emergency (ER) | payer BC ==
--- OUTSIDE RECORDS SUMMARY | 2017-12-13 13:40 | XMS REPORT ---
:1975 External Reference #:[id number] Author Organization [facility] 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 Onset: 05/26/2016 Acne FayalMichealt, DO Active Onset: 03/01/2016 Eruption BomelialJanaSharon, DO Active Onset: 03/01/2016 Breast lump Micheal Chut, DO Active Social History Description No Information Available Allergies, Adverse Reactions, Alerts Date Description Reaction Status Severity Comments 03/01/2016 Erythromycin active abd pain 03/01/2016 Penicillin active rash 03/01/2016 Latex active rash 03/01/2016 Contrast Dye active stops breathing 03/01/2016 Novocain active hives, rash 03/01/2016 Effexor active blood in stool 03/01/2016 Metformin active severe rash Medications Medication Date Status Form Strength Qnty SIG Indications Ordering Provider Ortho-Novum Active Tablets 1-35mg-mcg 1 by mouth Unknown (28) 000 every day Buspirone HCL Active Tablets 20mg 2 tab by Unknown 000 mouth bid for anxiety as needed Prozac Active Capsules 60mg 1 by mouth Unknown 000 every day Minocycline Active Capsules 100mg one by Unknown HCL 000 mouth every day for acne Black Cohosh Active Capsules 540mg 1 Tab By Unknown Extract 000 Mouth Once A Day Klonopin Active Tablets 0.5mg 1 po Tib Unknown 000 Lorazepam Hx Tablets 0.5mg 1 by mouth Unknown 000 as needed Vital Signs Date Vital Result Comment 04/23/2017 BP Systolic 145 mmHg BP Diastolic 90 mmHg Body Temperature 98.1 F Heart Rate 108 /min Weight 250.00 lb O2 % BldC Oximetry 99 % 11/17/2016 BP Systolic 127 mmHg BP Diastolic 78 mmHg Body Temperature 97.7 F Heart Rate 81 /min Weight 253.38 lb O2 % BldC Oximetry 97 % 10/23/2016 BP Systolic 142 mmHg BP Diastolic 92 mmHg Body Temperature 98.4 F Heart Rate 96 /min Weight 252.12 lb O2 % BldC Oximetry 96 % 05/26/2016 BP Systolic 136 mmHg BP Diastolic 93 mmHg Body Temperature 98.3 F Heart Rate 68 /min Respiratory Rate 16 /min Weight 247.12 lb O2 % BldC Oximetry 98 % 03/29/2016 BP Systolic Sitting Right Arm 130 mmHg BP Diastolic Sitting Right Arm 89 mmHg Body Temperature 97.5 F Heart Rate 87 /min Respiratory Rate 20 /min Weight 242.00 lb O2 % BldC Oximetry 98 % 03/10/2016 BP Systolic Sitting Resting Right Arm 135 mmHg BP Diastolic Sitting Resting Right Arm 92 mmHg Body Temperature 97.9 F Heart Rate 93 /min Respiratory Rate 18 /min Height 66 inches 5'6" Weight 240.50 lb BMI (Body Mass Index) 38.8 kg/m2 BSA (Body Surface Area) 2.16 m2 Hazel body weight in kilograms 59 O2 % BldC Oximetry 98 % 03/01/2016 BP Systolic 122 mmHg BP Diastolic 78 mmHg Body Temperature 97.9 F Heart Rate 74 /min Height 66 inches 5'6" Weight 242.00 lb BMI (Body Mass Index) 39.1 kg/m2 BSA (Body Surface Area) 2.17 m2 Hazel body weight in kilograms 59 O2 % BldC Oximetry 100 % Results Test Date Test Result H/L Range Note Laboratory test finding 04/23/2017 Immunoglobulin E,Total 8 IU/mL 0-100 1, 2 Immunoglobulins A/G/M, 04/23/2017 Immunoglobulin 879 mg/dL 700-1600 1 QN, Ser G,Quant,Serum Immunoglobulin A 238 mg/dL 87-352 1 Immunoglobulin M 69 mg/dL 26-217 1 Laboratory test finding 04/23/2017 LDH 173 U/L 84-246 1 Sedimentation Rate 5 mm/hr 0-20 1, 3 Comprehensive Metabolic Panel 04/23/2017 Glucose 119 mg/dL High 74-106 1 BUN 18 mg/dL 7-18 1 Creatinine 0.8 mg/dL 0.6-1.3 1 Glom Filtration Rate, Estimate >60 mL/min >60 1 If >60 mL/min >60 1, 4 BUN/Creat 22.5 ratio 1 Sodium 139 mmol/L 136-145 1 Potassium 3.5 mmol/L 3.5-5.1 1 Chloride 107 mmol/L 98-107 1 Carbon Dioxide 25 mmol/L 21-32 1 Anion Gap 7 mEq/L Low 8-16 1 Calcium 8.9 mg/dL 8.5-10.1 1 Total Protein 7.4 g/dL 6.4-8.2 1 Albumin 3.4 g/dL 3.4-5.0 1 Globulin 4.0 g/dL 1.9-4.3 1 Alb/Glob 0.9 ratio 1 Bilirubin,Total 0.2 mg/dL 0.2-1.0 1 Sgot/Ast 16 U/L 15-37 1 SGPT/Alt 33 U/L 12-78 1 Alkaline Phosphatase 104 U/L 45-117 1 CBS W/Automated Diff 04/23/2017 White Blood Count 9.3 K/uL 3.1-10.7 1 Red Blood Count 4.70 M/uL 3.90-5.40 1 Hemoglobin 14.8 gm/dL 11.6-15.8 1 Hematocrit 43.8 % 36.0-46.1 1 Mean Cell Volume 93.2 fl 80.9-99.0 1 Mean Corpuscular HGB 31.5 pg 25.9-32.7 1 Mean Corpuscular HGB Conc 33.8 g/dL 30.8-34.3 1 Platelet Count 273 K/uL 155-360 1 Red Cell Distri Width SD 43.8 fl 3-47 1 Red Cell Distri Width %CV 13.1 % 11.7-14.4 1 Mean Platelet Volume 10.5 fL 8.9-12.4 1 Neut% 62.0 % 40.4-72.8 1 Lymph % 31.2 % 20.0-42.0 1 Starr % 5.0 % 4.3-13.2 1 Eo% 1.6 % 0.0-6.6 1 Bas% 0.2 % 0.0-1.1 1 Neut# 5.77 K/uL 1.8-7.0 1 Lymph # 2.91 K/uL 1.0-4.0 1 Starr # 0.47 K/uL 0.3-0.9 1 Eos # 0.15 K/uL 0.0-0.5 1 Baso # 0.02 K/uL 0.0-0.1 1 CBS W/Automated Diff 10/09/2016 White Blood Count 7.4 K/uL 3.1-10.7 5 Red Blood Count 4.52 M/uL 3.90-5.40 5 Hemoglobin 13.6 gm/dL 11.6-15.8 5 Hematocrit 41.5 % 36.0-46.1 5 Mean Cell Volume 91.8 fl 80.9-99.0 5 Mean Corpuscular HGB 30.1 pg 25.9-32.7 5 Mean Corpuscular HGB Conc 32.8 g/dL 30.8-34.3 5 Platelet Count 286 K/uL 150-400 5 Red Cell Distri Width SD 50.2 fl High 3-47 5 Red Cell Distri Width %CV 15.1 % High 11.7-14.4 5 Mean Platelet Volume 10.7 fL 8.9-12.4 5 Neut% 62.0 % 40.4-72.8 5 Lymph % 28.7 % 20.0-42.0 5 Starr % 7.0 % 4.3-13.2 5 Eo% 2.0 % 0.0-6.6 5 Bas% 0.3 % 0.0-1.1 5 Neut# 4.61 K/uL 1.8-7.0 5 Lymph # 2.13 K/uL 1.0-4.0 5 Starr # 0.52 K/uL 0.3-0.9 5 Eos # 0.15 K/uL 0.0-0.5 5 Baso # 0.02 K/uL 0.0-0.1 5 Comprehensive Metabolic Panel 10/09/2016 Glucose 102 mg/dL 74-106 5 BUN 10 mg/dL 7-18 5 Creatinine 0.7 mg/dL 0.6-1.3 5 Glom Filtration Rate, Estimate >60 mL/min >60 5 If >60 mL/min >60 5, 6 BUN/Creat 14.2 ratio 5 Sodium 139 mmol/L 136-145 5 Potassium 4.2 mmol/L 3.5-5.1 5 Chloride 105 mmol/L 98-107 5 Carbon Dioxide 23 mmol/L 21-32 5 Anion Gap 11 mEq/L 8-16 5 Calcium 8.3 mg/dL Low 8.5-10.1 5 Total Protein 7.1 g/dL 6.4-8.2 5 Albumin 3.3 g/dL Low 3.4-5.0 5 Globulin 3.8 g/dL 1.9-4.3 5 Alb/Glob 0.9 ratio 5 Bilirubin,Total 0.3 mg/dL 0.2-1.0 5 Sgot/Ast 19 U/L 15-37 5 SGPT/Alt 28 U/L 12-78 5 Alkaline Phosphatase 110 U/L 45-117 5 Laboratory test finding 10/09/2016 CA 27.29 26.4 U/mL 0.0-38.6 5, 7 Tryptase 6.4 ug/L 2.2-13.2 5 LDH 220 U/L 84-246 5 Immunoglobulins A/G/M, QN, 10/09/2016 Immunoglobulin 989 mg/dL 700-1600 5 Ser G,Quant,Serum Immunoglobulin A 242 mg/dL 87-352 5 Immunoglobulin M 69 mg/dL 26-217 5, 8 Laboratory test finding 10/09/2016 Immunoglobulin E,Total 15 IU/mL 0-100 5 Xray 03/22/2016 Ultrasound Guided Biopsy <pending> CBS W/Automated Diff 03/01/2016 White Blood Count 8.4 K/uL 3.1-10.7 5 Red Blood Count 4.68 M/uL 3.90-5.40 5 Hemoglobin 13.2 gm/dL 11.6-15.8 5 Hematocrit 41.7 % 36.0-46.1 5 Mean Cell Volume 89.1 fl 80.9-99.0 5 Mean Corpuscular HGB 28.2 pg 25.9-32.7 5 Mean Corpuscular HGB Conc 31.7 g/dL 30.8-34.3 5 Platelet Count 300 K/uL 155-360 5 Red Cell Distri Width SD 44.4 fl 3-47 5 Red Cell Distri Width %CV 14.0 % 11.7-14.4 5 Mean Platelet Volume 10.4 fL 8.9-12.4 5 Neut% 59.2 % 40.4-72.8 5 Lymph % 34.0 % 17.0-46.1 5 Starr % 4.9 % 4.3-13.2 5 Eo% 1.7 % 0.0-6.6 5 Bas% 0.2 % 0.0-1.1 5 Neut# 5.00 K/uL 1.8-7.0 5 Lymph # 2.87 K/uL 1.8-7.0 5 Starr # 0.41 K/uL 0.3-0.9 5 Eos # 0.14 K/uL 0.0-0.5 5 Baso # 0.02 K/uL 0.0-0.1 5 Comprehensive Metabolic Panel 03/01/2016 Glucose 68 mg/dL Low 74-106 5 BUN 15 mg/dL 7-18 5 Creatinine 0.8 mg/dL 0.6-1.3 5 Glom Filtration Rate, Estimate >60 mL/min >60 5 If >60 mL/min >60 5, 9 BUN/Creat 18.7 ratio 5 Sodium 139 mmol/L 136-145 5 Potassium 3.7 mmol/L 3.5-5.1 5 Chloride 103 mmol/L 98-107 5 Carbon Dioxide 27 mmol/L 21-32 5 Anion Gap 9 mEq/L 8-16 5 Calcium 8.6 mg/dL 8.5-10.1 5 Total Protein 8.4 g/dL High 6.4-8.2 5 Albumin 3.7 g/dL 3.4-5.0 5 Globulin 4.7 g/dL High 1.9-4.3 5 Alb/Glob 0.8 ratio 5 Bilirubin,Total 0.4 mg/dL 0.2-1.0 5 Sgot/Ast 16 U/L 15-37 5 SGPT/Alt 22 U/L 12-78 5 Alkaline Phosphatase 117 U/L 45-117 5 Laboratory test finding 03/01/2016 CA 27.29 28.9 U/mL 0.0-38.6 5, 10 Tryptase 5.4 ug/L 2.2-13.2 5 LDH 196 U/L 84-246 5 Immunoglobulins A/G/M, QN, 03/01/2016 Immunoglobulin 1135 mg/dL 700-1600 5 Ser G,Quant,Serum Immunoglobulin A 325 mg/dL 87-352 5 Immunoglobulin M 97 mg/dL 26-217 5, 11 Laboratory test finding 03/01/2016 Immunoglobulin E,Total 6 IU/mL 0-100 5 1 N63.10 L70.9 2 Performed at: [facility] [id number] Restoration Ecologist: Katie Bowens MD, Phone: [phone] Performed at: [facility] [id number] Restoration Ecologist: Adrián Thornton MD, Phone: [phone] 3 Method: Sediplast Modified Westergren 4 Note: Persistent reduction for 3 months or more in an eGFR <60 mL/min/1.73 m2 defines CKD. Patients with eGFR values >/=60 mL/min/1.73 m2 may also have CKD if evidence of persistent proteinuria is present. The original MDRD equation for estimated GFR is not valid for patients less than 18 years of age. Additional information may be found at www.kdoqi.org. 5 Z80.3 R23.8 6 Note: Persistent reduction for 3 months or more in an eGFR <60 mL/min/1.73 m2 defines CKD. Patients with eGFR values >/=60 mL/min/1.73 m2 may also have CKD if evidence of persistent proteinuria is present. The original MDRD equation for estimated GFR is not valid for patients less than 18 years of age. Additional information may be found at www.kdoqi.org. 7 Luly Centaur/ACS methodology Values obtained with different assay methods or kits cannot be used interchangeably. Results cannot be interpreted as absolute evidence of the presence or absence of malignant disease. 8 Performed at: [facility] [id number] Restoration Ecologist: Katie Bowens MD, Phone: [phone] Performed at: [facility] [id number] Restoration Ecologist: Adrián Thornton MD, Phone: [phone] 9 Note: Persistent reduction for 3 months or more in an eGFR <60 mL/min/1.73 m2 defines CKD. Patients with eGFR values >/=60 mL/min/1.73 m2 may also have CKD if evidence of persistent proteinuria is present. The original MDRD equation for estimated GFR is not valid for patients less than 18 years of age. Additional information may be found at www.kdoqi.org. 10 Luly Centaur/ACS methodology Values obtained with different assay methods or kits cannot be used interchangeably. Results cannot be interpreted as absolute evidence of the presence or absence of malignant disease. 11 Performed at: - [facility] [address] [id number] Restoration Ecologist: Katie Bowens MD, Phone: [phone] Performed at: - [facility] [address] [id number] Restoration Ecologist: Adrián Thornton MD, Phone: [phone] Procedures Date CPT Code Description Status 03/14/2017 Mammogram Completed 11/14/2016 Mammogram Completed 01/07/2013 99452 Anesthesia, Hysteroscopy, Hystersalpingography Completed Encounters Type Date Location Provider CPT E/M Dx Office Visit 04/23/2017 3:00p [place] [address] N60.21 L70.9 Office Visit 11/17/2016 3:00p [place] [address] N63 L70.9 Office Visit 10/23/2016 3:00p [place] [address] N63 L70.9 Office Visit 05/26/2016 3:30p [place] [address] N63 L70.9 Office Visit 03/29/2016 3:30p [place] [address] N63 R21 Office Visit 03/10/2016 8:00a [place] [address] N63 R21 Office Visit 03/01/2016 11:00a [place] [address] N63 R21 Plan of Care 04/23/2017 - Sharon Chu DON60.21 Fibroadenosis of right breastComments: Discuss results of mammogram and ultrasound with the patient. She stated that the discomfort is decreased, do not want biopsy but is agreeing to repeated ultrasound. That will be schedule for August.Blood work will be obtained [id number] Acne, unspecifiedComments:Patient is scheduled to see Dr. Mayfield for treatment of her acne, ? folliculitis
--- NOTE | 2017-12-13 13:46 | UC ---
Complaint Female HPI - HPI Summary HPI Summary: 42-year-old female with urinary concern at this time. c/o MEYER x 4 days, vaginal spotting, uncomfortable when going to Bathroom that started yesterday. Unsure if a UTI or ulcer. Patient with numerous complaints. She states in the past she has had an ulcer in her stomach but no longer takes anti-inflammatories. She states a few years ago she had an ovarian ruptured cyst which got some bleeding for her and pain but was monitored outpatient. She states that since yesterday she has started to have burning with urination and urinary frequency as well as some lower abdominal discomfort. She has had no nausea or vomiting. She has had some loose stools. She states she has had excessive stress from work and is concerned that could be causing her fatigue and symptoms or potential ulcer. She denies any fevers or chills or weight changes. 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 Had a workup in the past for blood in her stools she states last year which was negative. [ End ] - History Of Current Complaint Stated Complaint: URINARY Time Seen by Provider: 12/13/17 13:44 Hx Obtained From: Patient Hx Last Menstrual Period: 05/16/17 ?: No - 1 week ago LMP Onset/Duration: Gradual Onset Aggravating Factor(s): Urination - Allergies/Home Medications Allergies/Adverse Reactions: Allergies Allergy/AdvReac Type Severity Reaction Status Date / Time erythromycin base Allergy Severe Abdominal Verified 12/13/17 13:42 [From Erythrocin] Pain metformin Allergy Intermediate Hives Verified 12/13/17 13:42 venlafaxine [From Effexor] Allergy Intermediate Hives Verified 12/13/17 13:42 latex Allergy Rash Verified 12/13/17 13:42 Penicillins Allergy Hives Verified 12/13/17 13:42 contrast dye Allergy Severe Shortness Uncoded 12/13/17 13:42 of Breath novacaine Allergy Mild Blisters Uncoded 12/13/17 13:42 PMH/Surg Hx/FS Hx/Imm Hx Previously Healthy: Yes GI/ History: Gastroesophageal Reflux, Ulcer Psychological History: Anxiety, Depression Other History Of: Negative For: HIV, Hepatitis B, Hepatitis C, Anticoagulant Therapy - Surgical History Surgical History: Yes Surgery Procedure, Year, and Place: Tonsillectomy, sinus surgery 04/2015,. rt wrist surgery 09/12/05,. D&C 01/2013. - Family History Known Family History: Positive: Hypertension, Diabetes, Other - [place] - Social History Occupation: Employed Full-time Alcohol Use: None Substance Use Type: None Smoking Status (MU): Never Smoked Tobacco Have You Smoked in the Last Year: No Household Exposure Type: Cigarettes - Immunization History Most Recent Influenza Vaccination: 2017 Review of Systems Genitourinary: Dysuria, Hematuria, Frequency, Urgency Motor: Negative Neurovascular: Negative Musculoskeletal: Negative Neurological: Negative Psychological: Anxious, Depressed Is Patient Immunocompromised?: No All Other Systems Reviewed And Are Negative: Yes Physical Exam Triage Information Reviewed: Yes Appearance: Well-Appearing, No Pain Distress, Well-Nourished Vital Signs Reviewed: Yes Eye Exam: Normal ENT Exam: Normal Dental Exam: Normal Neck exam: Normal Neck: Positive: 1 Respiratory Exam: Normal Cardiovascular Exam: Normal Abdominal Exam: Normal Abdomen Description: Positive: No Organomegaly, Soft, Other: - mild suprapubic discomfort to palpatiion. Negative: Bruit, CVA Tenderness (R), CVA Tenderness ( L), Distended, Guarding, McBurney's Point Tenderness, Peritoneal Signs Musculoskeletal Exam: Normal Neurological Exam: Normal Psychological Exam: Normal Skin Exam: Normal Complaint Female Dx - Course Course Of Treatment: With her initial symptoms of dysuria and what appears to be urinary tract infection on her urinalysis we will start treatment for this at this time. Are not improved or worsened and she is aware to seek medical attention at this time. We also discussed stress reduction and considering if she is having any heartburn symptoms to start medication for this. She is concerned that stress at work and be causing an ulcer and aware to start treatment for such at this time and if any concerns follow up with GI or cold to the emergency room for blood work and further workup. She is aware and agreeable to plan. She is aware of side effects of Bactrim like C. difficile and will monitor closely for this and consider starting probiotics. - Differential Dx/Diagnosis Differential Diagnosis/HQI/PQRI: Ovarian Cyst, Urinary Tract Infection Provider Diagnoses: UTI Discharge - Sign-Out/Discharge Documenting (check all that apply): Patient Departure All imaging exams completed and their final reports reviewed: No Studies - Discharge Plan Condition: Good Disposition: HOME Prescriptions: Sulfamethox/Trimethoprim DS* [Bactrim DS 800/160 TAB*] 1 tab PO BID 5 Days #10 tab Patient Education Materials: Urinary Tract Infection in Women (DC) Referrals: Reji Jorgensen MD [Primary Care Provider] - 4 Days - Billing Disposition and Condition Condition: GOOD Disposition: Home
[2017-12-13 13:50] VITALS: BP 139/80
--- NOTE | 2017-12-15 07:35 | UC ---
- Progress Note Progress Note: group b strep. 75-100K. -pt on bactrim Discharge - Sign-Out/Discharge Documenting (check all that apply): Post-Discharge Follow Up All imaging exams completed and their final reports reviewed: No Studies - Discharge Plan Condition: Good Disposition: HOME Prescriptions: Sulfamethox/Trimethoprim DS* [Bactrim DS 800/160 TAB*] 1 tab PO BID 5 Days #10 tab Patient Education Materials: Urinary Tract Infection in Women (DC) Referrals: Reji Jorgensen MD [Primary Care Provider] - 4 Days - Billing Disposition and Condition Condition: GOOD Disposition: Home
== END 2017-12-13 14:24 | disposition home or self-care (01) ==
LOC: UCCORT 13:32
DX: N39.0 Urinary tract infection, site not specified (principal); B95.1 Streptococcus, group B, as the cause of diseases classified elsewhere; Z88.1 Allergy status to other antibiotic agents; Z88.8 Allergy status to other drugs, medicaments and biological substances
CPT/HCPCS: 81003; 87077; 87086; 99212; G0463

== ENCOUNTER 2018-08-30 05:49 | Day surgery (SDC) | payer BC ==
[~2018-08-30 05:49] MED LIST: Buffered Lidocaine 1% SYRIN* 1 ML/SYRINGE INTRADERM ONE
[2018-08-30] MEDS ORDERED: Lactated Ringers 1000 ML Bag* 1,000 ML IV SCH (06:00)
[2018-08-30] MEDS ORDERED: Famotidine IV* 10 MG/ML 2 ML (20 mg) IV ONE (06:00)
[2018-08-30] MEDS ORDERED: Famotidine IV* 10 MG/ML 2 ML (20 mg) ONE (06:34)
[2018-08-30 06:48] LABS: Hematocrit 40 % (35-47); Hemoglobin 13.3 g/dL (12.0-16.0); Mean Corpuscular HGB Conc 34 g/dL (31-36); Mean Corpuscular Hemoglobin 30 pg (27-31); Mean Corpuscular Volume 89 fL (80-97); Mean Platelet Volume 7.5 fL (7.4-10.4); Platelet Count 257 10^3/uL (150-450); Red Blood Count 4.44 10^6 /uL (3.70-4.87); Red Cell Distribution Width 13 % (10.5-15); White Blood Count 6.4 10^3/uL (3.5-10.8)
[2018-08-30] MEDS ORDERED: VASOPRESSIN 20 UNITS/ML 1 ML VIAL ONE ×2 (07:18→08:54)
[2018-08-30] MEDS ORDERED: Iodine Strong (LUGOL'S)* 14 ML BTL ONE (07:19)
[2018-08-30] MEDS ORDERED: Acetic Acid 0.25%* 250 ML BTL ONE (07:20)
[2018-08-30] MEDS ORDERED: fentaNYL* 50 MCG/ML 2 ML VIAL (100 MCG VIAL) ONE (07:31)
[2018-08-30] MEDS ORDERED: Midazolam* 1 MG/ML 5 ML VIAL (5 MG) ONE (07:31)
[2018-08-30] MEDS ORDERED: Lidocaine 1% INJ* 10 MG/ML 30 ML SDV ONE (07:52)
[2018-08-30] MEDS ORDERED: Dexamethasone IV* 4 MG/ML 1 ML (4 MG) ONE (07:55)
[2018-08-30] MEDS ORDERED: Ketorolac INJ* 30 MG/ML 1 ML VIAL ONE (07:55)
[2018-08-30] MEDS ORDERED: DiMENhydriNATE IV* 50 MG/ML VIAL ONE (07:55)
[2018-08-30] MEDS ORDERED: Propofol* 10 MG/ML 20 ML BTL ONE (07:55)
[2018-08-30] MEDS ORDERED: Ondansetron INJ* 2 MG/ML VIAL ONE (07:55)
[2018-08-30] MEDS ORDERED: Lidocaine 2% PF * 5 ML VIAL ONE (07:56)
[2018-08-30] MEDS ORDERED: Naloxone* 0.4 MG/ML 1 ML VIAL IV PRN (08:04)
[2018-08-30] MEDS ORDERED: DiMENhydriNATE IV* 50 MG/ML VIAL IV PUSH PRN (08:04)
[2018-08-30] MEDS ORDERED: oxyCODONE TAB* 5 MG TAB PO PRN (08:04)
[2018-08-30] MEDS ORDERED: Acetaminophen IV 1GM/100ML * 1,000 MG/100 ML VIAL IVPB ONE (08:04)
[2018-08-30] MEDS ORDERED: HYDROmorphone INJ1* 1 MG/ML SYRINGE IV PRN (08:04)
[2018-08-30 09:46] VITALS: BP 126/81
--- NOTE | 2018-08-30 10:51 | OP ---
CC: [facility] OPERATIVE REPORT: DATE OF OPERATION: 08/30/18 DATE OF : 75 SURGEON: Roni Ventura MD ANESTHESIOLOGIST: Dr. Wood. ANESTHESIA: Sedation with local. PRE-OP DIAGNOSES: Moderate cervical dysplasia, JAVED 2 positive, high risk HPV. POST-OP DIAGNOSES: Moderate cervical dysplasia, JAVED 2 positive, high risk HPV. PROCEDURE: Colposcopy, Pearce cone biopsy and endocervical curettage. FINDINGS: Midline cervix. There was no Lugol staining at 7 o'clock, that lesion extended approximately 0.5cm from the endocervix towards the ectocervix, so the decision was made to use the Pearce size large cone biopsy, which was performed. The specimen was removed in one piece with a cut at 12 o'clock. Endocervical curettage was performed. Hemostasis was obtained with the rollerball cautery and Monsel's application. Excellent hemostasis was noted. All instruments were removed from the vagina. The patient tolerated the procedure well. COUNTS: Sponge count was correct x2 and the patient was brought to recovery room, awake, and in stable condition. [id number] #: [id number] MTDD
== END 2018-08-30 10:05 | disposition home or self-care (01) ==
LOC: OR 05:49
PROVIDERS: ATTEND Obstetrics & Gynecology
DX: N87.1 Moderate cervical dysplasia (principal); I10 Essential (primary) hypertension; E03.9 Hypothyroidism, unspecified; F41.8 Other specified anxiety disorders
CPT/HCPCS: 36415; 81025; 85027; 86850; 86900; 86901; 88305; 88307; A9270-GY; J1100; J1240; J1885; J2250; J2405; J2704; J3010